=== PATIENT | female | born 1945 | race Hispanic/Latino ===

== ENCOUNTER → 2018-10-13 | Outpatient (CLI) | payer OTHER, MEDICARE ==
[~2018-10-13] MED LIST: ASPI-1197 PO; BUSP5TAB3 PO; CHOL500050 PO; FEXO180T94 PO; FLUTICASONE NASAL; HYDR-2132 PO; HYDR25TA PO; LOSA50TA64 PO; LOVA40TA2 PO; METF-444 PO; METO-408 PO; NAPR220C15 PO; PANT40TA25 PO
== END | disposition home or self-care (01) ==
LOC: SHCH 11:35
PROVIDERS: ATTEND Internal Medicine Cardiovascular Disease
DX: I35.8 Other nonrheumatic aortic valve disorders (principal); I10 Essential (primary) hypertension
CPT/HCPCS: 93306

== ENCOUNTER → 2018-10-20 | Outpatient (CLI) | payer OTHER, MEDICARE ==
[~2018-10-20] VITALS: Ht 157.5 cm; Wt 88.5 kg
[~2018-10-20] MED LIST changes: +REGADENOSON 0.4 MG/5 ML PF SYG IVP SCH
== END | disposition home or self-care (01) ==
LOC: SHCH 07:49
PROVIDERS: ATTEND Internal Medicine Cardiovascular Disease
DX: R07.9 Chest pain, unspecified (principal)
CPT/HCPCS: 78452; 93017; 96374; A9500 ×2; J2785

== ENCOUNTER 2020-04-03 14:47 | Emergency (ER) | payer OTHER, MEDICARE ==
[~2020-04-03 14:47] MED LIST changes: -PANT40TA25 PO; +PANT40TA54 PO; -REGADENOSON 0.4 MG/5 ML PF SYG IVP SCH
[2020-04-03] MEDS ORDERED: MAG HYDROX/AL HYDROX/SIMETH ES 30 ML SUSP UDCUP ONE (15:31)
[2020-04-03] MEDS ORDERED: LIDOCAINE HCL 2% VISCOUS 15 ML UDCUP ONE (15:31)
[2020-04-03 15:46] LABS: BASOPHILS % (AUTO) 0.8 % (0.0-5.0); HEMATOCRIT 36.4 % (36-48); LYMPHOCYTES % (AUTO) 28.4 % (21.0-51.0); MEAN CORPUSCULAR HEMOGLOBIN 29.5 pg (27.0-33.0); MEAN CORPUSCULAR HGB CONC 32.7 g/dL (32.0-36.0); MEAN CORPUSCULAR VOLUME 90.1 fL (79-99); MONOCYTES % (AUTO) 6.8 % (3.0-13.0); NEUTROPHILS % (AUTO) 54.8 % (40.0-77.0); PLATELET COUNT (AUTO) 209 K/uL (130-400); RED BLOOD CELL COUNT(AUTO) 4.04 MIL/uL (4.00-5.50); RED CELL DISTRIBUTION WIDTH 13.6 % (11.0-15.5); WHITE BLOOD COUNT (AUTO) 6.4 K/uL (4.8-10.8)
[2020-04-03 16:05] LABS: CREATININE 0.9 mg/dL (0.5-1.5); POTASSIUM 4.2 mmol/L (3.5-5.1)
[2020-04-03 16:11] LABS: ALBUMIN 4.1 g/dL (3.5-5.0); BILIRUBIN,TOTAL 0.3 mg/dL (0.2-1.0); TOTAL PROTEIN, SERUM 8.1 g/dL (6.0-8.3)
== END 2020-04-03 17:09 | disposition home or self-care (01) ==
LOC: EDH 14:47
DX: K21.00 Gastro-esophageal reflux disease with esophagitis, without bleeding (principal); I10 Essential (primary) hypertension; E11.9 Type 2 diabetes mellitus without complications; Z87.891 Personal history of nicotine dependence
CPT/HCPCS: 36415; 76705; 80053; 83690; 84484; 85025; 93005

== ENCOUNTER 2022-02-09 01:50 | Emergency (ER) | payer OTHER, MEDICARE ==
[~2022-02-09] VITALS: Ht 157.5 cm; Wt 88.5 kg
[2022-02-09 02:31] LABS: BASOPHILS % (AUTO) 0.7 % (0.0-5.0); EOSINOPHILS % (AUTO) 8.3 % (0.0-8.0); MEAN CORPUSCULAR HEMOGLOBIN 29.1 pg (27.0-33.0); MEAN CORPUSCULAR HGB CONC 32.8 g/dL (32.0-36.0); MEAN CORPUSCULAR VOLUME 88.9 fL (79-99); MONOCYTES % (AUTO) 7.4 % (3.0-13.0); NEUTROPHILS % (AUTO) 50.4 % (40.0-77.0); PLATELET COUNT (AUTO) 197 K/uL (130-400); RED BLOOD CELL COUNT(AUTO) 4.05 MIL/uL (4.00-5.50); RED CELL DISTRIBUTION WIDTH 13.2 % (11.0-15.5); WHITE BLOOD COUNT (AUTO) 8.9 K/uL (4.8-10.8)
[2022-02-09 02:44] LABS: POTASSIUM 3.9 mmol/L (3.5-5.1)
[2022-02-09 02:48] LABS: ALBUMIN 3.9 g/dL (3.5-5.0); TOTAL PROTEIN, SERUM 7.2 g/dL (6.0-8.3)
[2022-02-09 03:07] VITALS: BP 154/80
== END 2022-02-09 03:14 | disposition home or self-care (01) ==
LOC: EDH 01:50
DX: M25.511 Pain in right shoulder (principal); M25.512 Pain in left shoulder; M79.7 Fibromyalgia; E11.9 Type 2 diabetes mellitus without complications; E78.00 Pure hypercholesterolemia, unspecified; I10 Essential (primary) hypertension; Z79.899 Other long term (current) drug therapy; Z98.890 Other specified postprocedural states
CPT/HCPCS: 36415; 80053; 84484; 85025; 93005

== ENCOUNTER 2023-07-08 21:11 | Emergency (ER) | payer OTHER, MEDICARE ==
[~2023-07-08] VITALS: Ht 157.5 cm; Wt 86.2 kg
[2023-07-08 23:21] LABS: BASOPHILS # (AUTO) 0.02 K/uL (0.00-0.20); BASOPHILS % (AUTO) 0.2 % (0.0-5.0); EOSINOPHILS # (AUTO) 0.16 K/uL (0.00-0.70); EOSINOPHILS % (AUTO) 1.9 % (0.0-8.0); HEMATOCRIT 41.2 % (36-48); IMMATURE GRANULOCYTE ABSOLUTE 0.02 K/uL (0-1); LYMPHOCYTES # (AUTO) 2.2 K/uL (1.0-4.8); MEAN CORPUSCULAR HGB CONC 33.7 g/dL (32.0-36.0); MONOCYTES # (AUTO) 0.5 K/uL (0.1-1.0); MONOCYTES % (AUTO) 5.8 % (3.0-13.0); NEUTROPHILS # (AUTO) 5.5 K/uL (1.8-7.7); NEUTROPHILS % (AUTO) 65.9 % (40.0-77.0); PLATELET COUNT (AUTO) 209 K/uL (130-400); RED BLOOD CELL COUNT(AUTO) 4.63 MIL/uL (4.00-5.50); WHITE BLOOD COUNT (AUTO) 8.3 K/uL (4.8-10.8)
[2023-07-08 23:30] LABS: CREATININE 0.9 mg/dL (0.5-1.5); POTASSIUM 3.9 mmol/L (3.5-5.1)
[2023-07-08] MEDS ORDERED: MAG/ALUM/SIMETH 30 ML UDCUP PO ONE (23:30)
[2023-07-08] MEDS ORDERED: FAMOTIDINE 20MG VIAL IV ONE (23:30)
[2023-07-08 23:39] LABS: BILIRUBIN,TOTAL 0.4 mg/dL (0.2-1.0); TOTAL PROTEIN, SERUM 8.5 g/dL (6.0-8.3)
[2023-07-09] MEDS ORDERED: LEVOFLOXACIN 500 MG/D5W 100 ML 100 ML IV SCH (00:30)
[2023-07-09] MEDS ORDERED: OMEP40CA21 PO (01:42)
[2023-07-09] MEDS ORDERED: ONDA-104 PO (01:42)
[2023-07-09 02:22] VITALS: BP 152/93; PULSE 83; RESP 16; O2SAT 98
== END 2023-07-09 02:25 | disposition home or self-care (01) ==
LOC: EDH 21:11
DX: K21.9 Gastro-esophageal reflux disease without esophagitis (principal); R07.89 Other chest pain; E11.9 Type 2 diabetes mellitus without complications; E78.00 Pure hypercholesterolemia, unspecified; M19.90 Unspecified osteoarthritis, unspecified site; M79.7 Fibromyalgia; Z79.899 Other long term (current) drug therapy; Z88.6 Allergy status to analgesic agent
CPT/HCPCS: 99285; 96374; 71045; 84484 ×2; 80053; 83690; 85025; 36415; 93005 ×2; J3490

== ENCOUNTER 2024-07-31 01:42 | Emergency (ER) | payer OTHER, MEDICARE ==
[~2024-07-31] VITALS: Ht 157.5 cm; Wt 84.4 kg
[~2024-07-31 01:42] MED LIST changes: +OMEP40CA21 PO; +ONDA-104 PO
--- NOTE | 2024-07-31 03:06 | ERN ---
ED Note History of Present Illness Stated Complaint: C/O PAIN TO LEFT ARM Chief Complaint: Upper Extremity Pain/Injury Time Seen by MD: 02:04 Dictation: This is a 79-year-old female who presented to the emergency room stating that her left shoulder and arm has been hurting since Wednesday. She just underwent a dental surgery after which the pain started. Patient has a known history of left-sided rotator cuff surgery in the past and does experience chronic shoulder pain anyway but it got worse since Wednesday Temperature 97.8 pulse 94 respirations 20 blood pressure 123/92 with a pulse oximetry of 97% on room air Her chronic medical problems include diabetes mellitus, hypertension, hypercholesterolemia Allergies: Coded Allergies: No Known Allergies (Unverified Allergy, Unknown, 12/08/16) Home Meds Active Scripts Omeprazole (Omeprazole) 40 Mg Capsule., 40 MG PO DAILY, #30 CAP Prov:NATASHA SZYMANSKI MD 07/09/23 Ondansetron HCl (Ondansetron HCl) 4 Mg Tablet, 4 MG PO TIDP PRN for VOMITING, #20 TAB Prov:NATASHA SZYMANSKI MD 07/09/23 Hydrocodone Bit/Acetaminophen ([place] 5/325Mg) 1 Tab Tablet, 1-2 TAB PO Q6H PRN for PAIN, #90 TAB Prov:DANTE HALL MD 12/11/16 Reported Medications Fexofenadine HCl (Nuzhat Allergy) 180 Mg Tablet, 180 MG PO DAILY PRN for PRN, TAB ALLERGIES 12/08/16 Pantoprazole Sodium (Pantoprazole Sodium) 40 Mg Tablet.dr, 40 MG PO DAILY PRN for PRN, TAB HEARTBURN 12/08/16 [Fluticasone ] No Conflict Check, 50 MCG NASAL DAILY 1 SPRAY 12/08/16 Buspirone HCl (Buspirone HCl) 5 Mg Tablet, 5 MG PO TIDP, TAB ANXIETY 12/08/16 Hydrochlorothiazide (Hydrochlorothiazide) 25 Mg Tablet, 25 MG PO QODAY, TAB DAILY 12/08/16 Naproxen Sodium (Aleve) 220 Mg Capsule, 220 MG PO BID PRN for PRN, CAP PAIN 12/08/16 Lovastatin (Lovastatin) 40 Mg Tablet, 40 MG PO HS, TAB 12/08/16 Cholecalciferol (Vitamin D3) (Vitamin D) 50,000 Unit Capsule, 54591 UNIT PO WKLY, CAP 12/08/16 Aspirin (Aspirin) 81 Mg Tab.chew, 81 MG PO HS, TAB.CHEW 12/08/16 Metoprolol Succinate (Metoprolol Succinate) 25 Mg Tab.er.24h, 25 MG PO BID, TAB 12/08/16 Losartan Potassium (Losartan Potassium) 50 Mg Tablet, 50 MG PO DAILY, TAB 12/08/16 Metformin HCl (Metformin HCl) 500 Mg Tablet, 500 MG PO BID, TAB 12/08/16 Past Medical History Past Medical History: Diabetes-Type II, High Cholesterol, Hypertension Surgical History: Other Surgical History Other: TOTAL KNEE REPLACEMENT; LEFT ROTATOR CUFF SX; DENTAL SX (07/14/24) Social History: Negative, Lives with family History: Not Applicable RN Note Reviewed/Agreed w/PFSH: Yes Review of System Dictation Constitutional: Negative for fever,chills, and weight loss Eyes: Negative for injury, pain,redness, and discharge ENT: Negative for injury,pain or swelling Cardiovascular: Negative for chest pain, palpitations, and edema Respiratory: Negative for shortness of breath, cough, and wheezing, Abdomen/GI: Negative for abdominal pain, nausea, vomiting, diarrhea, and constipation Back: Negative for injury and pain : Negative for injury, bleeding and discharge MS/Extremity: Negative for injury and deformity positive for left shoulder and arm pain Skin: Negative for rash, and discoloration Neuro: Negative for headache, weakness, numbness, tingling, and seizure Psych: Negative for suicide ideation, homicidal ideation, and hallucinations Initial Vital Sign VS Vital Signs Date Time Temp Pulse Resp B/P (MAP) Pulse Ox O2 Delivery O2 Flow Rate FiO2 07/31/24 01:46 97.9 94 20 123/92 97 Room Air Physical Exam Dictation General: awake, alert, NAD Head/Face: Normocephalic, atraumatic Eyes: PERRL, EOMI, vision at baseline ENT: oral cavity clear, TMs clear, no signs of infection Neck: Trachea midline, supple, no nuchal rigidity Cardiovascular: RRR, normal S1/S2, No MRGs, no JVD Respiratory: CTAB, no respiratory distress, No rales or wheezes Abdomen: Soft, non-tender, non-distended, normal bowel sounds, no guarding or rebound. Skin: Warm, dry, normal turgor, no rash MS/Extremity: Pulses equal, no cyanosis, neurovascular intact, FROM left trapezius muscle and upper shoulder muscles very tender and tense Neuro: COAx4, GCS 15, strength 5/5, CN 2-12 intact, normal cerebellar exam, normal gait, Psych: Normal behavior, mood, and affect normal Extremities-trace edema without any palpable cords, Homans sign is negative Results (Laboratory/Radiology) Labs Reviewed?: Yes ED Course ED Course Orders Procedure Category Date Status Time Hydromorphone 1 Mg PHA 07/31/24 Complete Inj (Dilaudid 1mg Inj 03:30 Current Medications Medications (Trade) Dose Ordered Sig/Marjan Route PRN Reason Start Time Stop Time Status Last Admin Dose Admin Hydromorphone HCl (DiLAUDid 1MG INJ) 1 mg ONCE ONCE IM 07/31/24 03:30 07/31/24 03:31 DC 07/31/24 03:31 Vital Signs Date Time Temp Pulse Resp B/P (MAP) Pulse Ox O2 Delivery O2 Flow Rate FiO2 07/31/24 01:46 97.9 94 20 123/92 97 Room Air We will administer medications according to the patient's complaint. Once the results are available, will review and personally interpreted the labs to rule out any acute life-threatening emergency the trach require immediate intervent ion and treatment. I will then re-evaluate the patient after treatment and diagnostic exams have return to determine whether the patient requires any further testing, can safely be discharged home or need further admission to hospital for additional treatment and evaluation. Patient responded very well to pain medication and she will be discharged to home Patient is already taking baclofen and tramadol PRN and she also has Tylenol No. 3 that was given to her after the dental surgery Medical Decision Making MDM MDM: Differential diagnosis: Degenerative arthritis of the left shoulder, sprain, dislocation Rationale: Tests considered and ordered secondary to shared decision making include: Previous outside records reviewed: Old ER visits. Risk of complication and/or morbidity or mortality of patient management: None Medications-Per medication reconciliation Need for hospitalization: Patient does not meet criteria for hospitalization. Need for emergency major/minor surgery: No There are no social concerns with this patient. Prescription drug management Prescriptions will include symptomatic care Patient's prior external medical records from other ER visits were reviewed by me as indicated. Prior testing and results from previous visits were reviewed. Prior tests were taken into account with medical decision making and resource utilization, independent historian/historians were used to obtain complete medical history. I independently interpreted the test that were performed, results were reviewed by me and considered findings on radiology if ordered. Medical management and examination interpretation discussions were had by me with other qualified healthcare professionals as indicated for the patient's care. Problem List Problem List: (1) Left rotator cuff tear arthropathy (2) Spasm of left trapezius muscle DX & DISP Disposition: Discharge Departure Impression: Primary Impression: Left rotator cuff tear arthropathy Additional Impression: Spasm of left trapezius muscle Condition: Stable Scripts Meloxicam (Meloxicam) 7.5 Mg Tablet 1 TAB PO DAILY for pain for 10 Days, #10 TAB 0 Refills Prov: ARMANDO SERRANO MD 07/31/24 Additional Instructions: Patient and the caregiver have been informed of all the diagnostic tests and the imaging conducted during the today's visit to the emergency room and has verbalized understanding of the results I have personally reviewed and interpr eted all diagnostic exams performed here in the ER today as well as the vital signs documented by the nursing staff. The patient is now being discharged to home and should follow up with the primary care physician or the specialist as directed by the ER staff. Follow-up with primary care provider in 1 to 2 days. Take medications as directed here in the emergency room. Okay to continue home medications unless otherwise discussed during your visit in the emergency room today. Return to your nearest emergency room if symptoms worsen or if there is no improvement. Call 911 if you need immediate assistance. Take Tylenol or Motrin [id number] as needed and if no contraindications are present. Increase oral hydration. A wound culture or urine culture was ordered here in the emergency room department please follow-up with primary care provider and advise them to get repeat ports from our facility. If you had any Aleks wrap/splints that were applied here, please do not remove them until you see your primary care or specialty. Referrals: YOHANNES AMBROSE MD (PCP) ARMANDO SERRANO MD Jul 31, 2024 03:06
[2024-07-31] MEDS: hydroMORPHone 1 MG INJ IM ONE (03:31)
[2024-07-31] MEDS ORDERED: MELO-106 PO (04:20)
[2024-07-31 04:27] VITALS: BP 128/86; PULSE 89; RESP 18; TEMP 97.9; O2SAT 98
== END 2024-07-31 04:35 | disposition home or self-care (01) ==
LOC: EDH 01:42
DX: M75.122 Complete rotator cuff tear or rupture of left shoulder, not specified as traumatic (principal); M19.012 Primary osteoarthritis, left shoulder; M62.838 Other muscle spasm; E11.9 Type 2 diabetes mellitus without complications; E78.00 Pure hypercholesterolemia, unspecified; I10 Essential (primary) hypertension; Z79.899 Other long term (current) drug therapy; Z88.6 Allergy status to analgesic agent; Z96.659 Presence of unspecified artificial knee joint
CPT/HCPCS: 99283; 96372; J1171